=== PATIENT | male | born 1970 | race Caucasian/White ===

== ENCOUNTER 2018-06-21 23:30 | Inpatient (IN) ==
[2018-06-21] MEDS ORDERED: Heparin - SQ 10,000 UNITS/ML Vial ONE (23:44)
[2018-06-21] MEDS ORDERED: Heparin 10,000 UNITS/10 ML Vial (for IV use) IV.PUSH STA (23:45)
[2018-06-21] MEDS ORDERED: Sod Chloride 0.9% Inj 1,000 ML IV.SIG SCH (23:45)
[2018-06-21] MEDS ORDERED: Nitroglycerin Drip Premix 50 MG/250 ML BOTTLE IV.CONT PRN (23:45)
[2018-06-21] MEDS ORDERED: Morphine Inj 4 MG/ML Vial ONE (23:48)
--- NOTE | 2018-06-22 00:05 | ED ---
HPI General Chief Complaint: STEMI Alert Stated Complaint: Chest Pain Time Seen by Provider: 06/21/18 23:45 Source: patient and family (Mother) Mode of arrival: ambulatory Limitations: no limitations History of Present Illness HPI narrative: 47-year-old male came to the emergency room brought by his mother with severe chest pain substernal radiating bilaterally. Patient appeared to be in significant distress and was brought in from triage emergently. As per the mother he started having chest pain 2 hours ago and EMS was called. However patient felt better afterward and refused to come in at that time. His pain restarted 1 hour prior to his arrival this time. It has been continuous since then. Patient says that he has been getting on and off chest pain earlier today that he accounted for gas at that time. Patient was hypertensive with blood pressure of 181/115. He was diaphoretic. He is otherwise a healthy person and not on any medications. He is not a smoker. Mother says that there is family history on her side with heart attack. complaint: Reports chest pain STEMI Alert: Yes Onset (ago): hour(s) Time: 01:00 Duration: constant Onset: during rest Pain location: Reports substernal, left chest and right chest Severity: severe Severity scale (1-10): >10 Quality: Reports heaviness Pain radiation: Reports other Relieving factors: nothing Exacerbating factors: nothing Context: Reports other Associated symptoms: Reports diaphoresis Treatments prior to arrival chest pain: Reports none Related Data Previous Rx's Medication Instructions Recorded aspirin 81 mg PO DAILY #30 tab 06/23/18 atorvastatin 40 mg PO HS #30 tab 06/23/18 metoprolol tartrate 12.5 mg PO BID #60 tab 06/23/18 ticagrelor [Brilinta] 90 mg PO BID #60 tab 06/23/18 Review of Systems ROS: all other systems reviewed are negative Cardiovascular Reports chest pain at rest and Reports diaphoresis PMFSH History History Provided By: Patient and Family Member (Mother) Medical History Medical History Patient denies medical problems (Acute) Surgical History Surgical History No history of previous surgery (Acute) Social History Social History Substance History: No History of Abuse Second Hand Smoke Exposure: No Smoking Status: Never smoker How Often Do You Have a Drink Containing Alcohol: Never Recent Travel in [facility] within the Last 8 Weeks: No Recent Out of Country Travel within the Last 8 Weeks: No Exam Narrative Exam Narrative: GENERAL: Awake, alert, significant distress, anxious SKIN: Pale, diaphoretic HEAD: Atraumatic. Normocephalic. EYES: Pupils equal and round. No scleral icterus. No injection or drainage. ENT: No nasal bleeding or discharge. Mucous membranes pink and moist. NECK: Trachea midline. No JVD. CARDIOVASCULAR: Regular rate and rhythm. No murmur appreciated. RESPIRATORY: No accessory muscle use. Clear to auscultation. Breath sounds equal bilaterally. GASTROINTESTINAL: Abdomen soft, non-tender, nondistended. Hepatic and splenic margins not palpable. MUSCULOSKELETAL: No obvious deformities. No clubbing. No cyanosis. No edema. NEUROLOGICAL: Awake and alert. No obvious cranial nerve deficits. Motor grossly within normal limits. Normal speech. PSYCHIATRIC: Appropriate mood and affect; insight and judgment normal. Course Initial Documented Vital Signs Pulse Rate 66 06/21/18 23:41 Respiratory Rate 18 06/21/18 23:41 Blood Pressure 181/112 H 06/21/18 23:41 Pulse Oximetry 100 06/21/18 23:41 Last Documented Vital Signs Temperature 99 F 06/23/18 09:00 Pulse Rate 70 06/23/18 09:00 Respiratory Rate 18 06/23/18 09:00 Blood Pressure 109/67 06/23/18 09:00 Pulse Oximetry 96 06/23/18 09:00 Critical Care Time Critical Care Time: Yes Total Critical Care Time: 45 Attestation: Aggregate critical care time was 45 minutes. Time to perform other separately billable procedures was not included in the critical care time. My time did not include minutes spent treating any other patients simultaneously or on activities that did not directly contribute to the patient's treatment. The services I provided to this patient were to treat and/or prevent clinically significant deterioration that could result in: STEMI alert I provided critical care services requiring my management, as noted below: Chart data review, documentation time, medication orders and management, vital sign assessments/reviewing monitor data, ordering and reviewing lab tests, ordering and interpreting/reviewing x-rays and diagnostic studies, care of the patient and discussion of the patient with the admitting physicians. Medical Decision Making MDM Narrative Medical decision making narrative: 12:08 AM based on the twelve-lead EKG a STEMI alert was called by me. I discussed the case with Dr. Bearden. Oil Sprayer has been alerted. Awaiting for Dr. Bearden and cath team to arrive. Patient has been given 4 baby aspirins, sublingual nitro, 5000 units of heparin IV, nitroglycerin drip, morphine and Zofran. He told me that his chest pain was slightly better. His perfusion looks slightly better. Patient is still diaphoretic. His mother has been kept updated by me. Patient continues to be hemodynamically stable. Current blood pressure is 138/70. Medical Screen Exam Complete: Yes Emergency Medical Condition: Yes Lab Data Result diagrams: 06/23/18 04:48 06/23/18 04:48 Lab Results 06/21/18 06/21/18 06/21/18 Range/Units 23:50 23:50 23:50 WBC 8.0 (4.0-11.0) th/mm3 RBC 4.38 L (4.50-5.90) mil/mm3 Hgb 14.6 (13.0-17.0) gm/dL POC Hgb (Calc) (13.0-17.0) g/dL Hct 42.6 (39.0-51.0) % POC Hct (39-51.0) % MCV 97.2 (80.0-100.0) fL MCH 33.4 (27.0-34.0) pg MCHC 34.3 (32.0-36.0) % RDW 12.5 (11.6-17.2) % Plt Count 238 (150-450) th/mm3 MPV 9.7 (7.0-11.0) fL Neut % (Auto) 53.6 (16.0-70.0) % Lymph % (Auto) 33.4 (9.0-44.0) % Quay % (Auto) 9.7 H (0.0-8.0) % Eos % (Auto) 2.4 (0.0-4.0) % Baso % (Auto) 0.9 (0.0-2.0) % Neut # (Auto) 4.3 (1.8-7.7) th/mm3 Lymph # (Auto) 2.7 (1.0-4.8) th/mm3 Quay # (Auto) 0.8 (0.0-0.9) th/mm3 Eos # (Auto) 0.2 (0.0-0.4) th/mm3 Baso # (Auto) 0.1 (0.0-0.2) th/mm3 WBC Differential . Differential Comment Auto diff final PT 10.7 (9.8-11.6) sec INR 1.1 Ratio APTT 25.4 (24.3-30.1) sec POC Sodium (137-144) mmol/L Sodium (136-145) meq/L POC Potassium (3.6-5.0) mmol/L Potassium (3.5-5.1) meq/L POC Chloride (102-111) mmol/L Chloride (98-107) meq/L Carbon Dioxide (21.0-32.0) meq/L Anion Gap (5-15) meq/L POC BUN (5-21) mg/dL BUN (7-18) mg/dL Creatinine (0.60-1.30) mg/dL POC Creatinine (0.6-1.3) mg/dL Estimated GFR (>89) mL/min POC Glucose (68-110) mg/dL Random Glucose (74-106) mg/dL Calcium 8.6 (8.5-10.1) mg/dL Magnesium 2.3 (1.5-2.5) mg/dL Total Creatine Kinase 156 (39-308) U/L CK-MB (CK-2) 2.7 (0.5-3.6) ng/mL CK-MB (CK-2) % (0.0-4.0) % Troponin I Less than 0.02 L (0.02-0.05) ng/mL B-Natriuretic Peptide (0-100) pg/mL Triglycerides (42-150) mg/dL Cholesterol (120-200) mg/dL LDL Cholesterol, Calc (0-99) mg/dL HDL Cholesterol (40.0-60.0) mg/dL Cholesterol/HDL Ratio Ratio 06/21/18 06/21/18 06/23/18 Range/Units 23:50 23:50 04:48 WBC 11.9 H (4.0-11.0) th/mm3 RBC 4.00 L (4.50-5.90) mil/mm3 Hgb 13.5 (13.0-17.0) gm/dL POC Hgb (Calc) 15.0 (13.0-17.0) g/dL Hct 39.6 (39.0-51.0) % POC Hct 44.0 (39-51.0) % MCV 99.0 (80.0-100.0) fL MCH 33.8 (27.0-34.0) pg MCHC 34.2 (32.0-36.0) % RDW 12.6 (11.6-17.2) % Plt Count 202 (150-450) th/mm3 MPV 10.6 (7.0-11.0) fL Neut % (Auto) 81.8 H (16.0-70.0) % Lymph % (Auto) 10.1 (9.0-44.0) % Quay % (Auto) 7.6 (0.0-8.0) % Eos % (Auto) 0.3 (0.0-4.0) % Baso % (Auto) 0.2 (0.0-2.0) % Neut # (Auto) 9.7 H (1.8-7.7) th/mm3 Lymph # (Auto) 1.2 (1.0-4.8) th/mm3 Quay # (Auto) 0.9 (0.0-0.9) th/mm3 Eos # (Auto) 0.0 (0.0-0.4) th/mm3 Baso # (Auto) 0.0 (0.0-0.2) th/mm3 WBC Differential . Differential Comment Auto diff final PT (9.8-11.6) sec INR Ratio APTT (24.3-30.1) sec POC Sodium 143 (137-144) mmol/L Sodium (136-145) meq/L POC Potassium 3.3 L (3.6-5.0) mmol/L Potassium (3.5-5.1) meq/L POC Chloride 103 (102-111) mmol/L Chloride (98-107) meq/L Carbon Dioxide (21.0-32.0) meq/L Anion Gap (5-15) meq/L POC BUN 13 (5-21) mg/dL BUN (7-18) mg/dL Creatinine (0.60-1.30) mg/dL POC Creatinine 1.0 (0.6-1.3) mg/dL Estimated GFR (>89) mL/min POC Glucose 103 (68-110) mg/dL Random Glucose (74-106) mg/dL Calcium (8.5-10.1) mg/dL Magnesium (1.5-2.5) mg/dL Total Creatine Kinase (39-308) U/L CK-MB (CK-2) (0.5-3.6) ng/mL CK-MB (CK-2) % (0.0-4.0) % Troponin I (0.02-0.05) ng/mL B-Natriuretic Peptide 15 (0-100) pg/mL Triglycerides (42-150) mg/dL Cholesterol (120-200) mg/dL LDL Cholesterol, Calc (0-99) mg/dL HDL Cholesterol (40.0-60.0) mg/dL Cholesterol/HDL Ratio Ratio 06/23/ Range/Units 04:48 WBC (4.0-11.0) th/mm3 RBC (4.50-5.90) mil/mm3 Hgb (13.0-17.0) gm/dL POC Hgb (Calc) (13.0-17.0) g/dL Hct (39.0-51.0) % POC Hct (39-51.0) % MCV (80.0-100.0) fL MCH (27.0-34.0) pg MCHC (32.0-36.0) % RDW (11.6-17.2) % Plt Count (150-450) th/mm3 MPV (7.0-11.0) fL Neut % (Auto) (16.0-70.0) % Lymph % (Auto) (9.0-44.0) % Quay % (Auto) (0.0-8.0) % Eos % (Auto) (0.0-4.0) % Baso % (Auto) (0.0-2.0) % Neut # (Auto) (1.8-7.7) th/mm3 Lymph # (Auto) (1.0-4.8) th/mm3 Quay # (Auto) (0.0-0.9) th/mm3 Eos # (Auto) (0.0-0.4) th/mm3 Baso # (Auto) (0.0-0.2) th/mm3 WBC Differential Differential Comment PT (9.8-11.6) sec INR Ratio APTT (24.3-30.1) sec POC Sodium (137-144) mmol/L Sodium 139 (136-145) meq/L POC Potassium (3.6-5.0) mmol/L Potassium 3.5 (3.5-5.1) meq/L POC Chloride (102-111) mmol/L Chloride 106 (98-107) meq/L Carbon Dioxide 25.0 (21.0-32.0) meq/L Anion Gap 8 (5-15) meq/L POC BUN (5-21) mg/dL BUN 8 (7-18) mg/dL Creatinine 0.99 (0.60-1.30) mg/dL POC Creatinine (0.6-1.3) mg/dL Estimated GFR 80 L (>89) mL/min POC Glucose (68-110) mg/dL Random Glucose 119 H (74-106) mg/dL Calcium 8.4 L (8.5-10.1) mg/dL Magnesium (1.5-2.5) mg/dL Total Creatine Kinase 1157 H (39-308) U/L CK-MB (CK-2) 101.5 H (0.5-3.6) ng/mL CK-MB (CK-2) % 8.8 H* (0.0-4.0) % Troponin I (0.02-0.05) ng/mL B-Natriuretic Peptide (0-100) pg/mL Triglycerides 143 (42-150) mg/dL Cholesterol 144 (120-200) mg/dL LDL Cholesterol, Calc 78 (0-99) mg/dL HDL Cholesterol 37.3 L (40.0-60.0) mg/dL Cholesterol/HDL Ratio 3.86 Ratio Imaging Data Radiologist's impression: Chest X-Ray 06/21/18 23:45 CONCLUSION: No acute cardiopulmonary process. ECG Data Attestation: I personally reviewed and interpreted this ECG as follows: Interpretation: Normal sinus rhythm, normal axis, anterior lateral ST elevations with inferior reciprocal depression. Heart rate of 65 bpm. Discharge Plan Discharge Disposition Patient Disposition: 30 Still Patient Discharge Condition Condition: Good Discharge Order Discharge Orders: Discharge Order (Routine); Ordered 06/23/18 Ordered By: Nabeel Bearden Cardiology Clear for Discharge (Routine); Ordered 06/23/18 Ordered By: Nabeel Bearden Discharge Details Anticipated Discharge Date: 06/23/18 Physicians Team ED Provider: Cole Jeffers Primary Care Provider: Primary Care Sumaya Young Attending Provider: Nabeel Bearden Status ED Status: Left Department Discharge Information Discharge Date/Time: 06/22/18 00:17
[2018-06-22 00:07] LABS: Baso # (Auto) 0.1 th/mm3 (0.0-0.2); Baso % (Auto) 0.9 % (0.0-2.0); Eos # (Auto) 0.2 th/mm3 (0.0-0.4); Eos % (Auto) 2.4 % (0.0-4.0); Hematocrit 42.6 % (39.0-51.0); Hemoglobin 14.6 gm/dL (13.0-17.0); Lymph # (Auto) 2.7 th/mm3 (1.0-4.8); Lymph % (Auto) 33.4 % (9.0-44.0); Mean Corpuscular HGB Conc 34.3 % (32.0-36.0); Mean Corpuscular Hemoglobin 33.4 pg (27.0-34.0); Mean Corpuscular Volume 97.2 fL (80.0-100.0); Mean Platelet Volume 9.7 fL (7.0-11.0); Mono # (Auto) 0.8 th/mm3 (0.0-0.9); Mono % (Auto) 9.7 % (0.0-8.0); Neut # (Auto) 4.3 th/mm3 (1.8-7.7); Neut % (Auto) 53.6 % (16.0-70.0); Platelet Count 238 th/mm3 (150-450); Red Blood Count 4.38 mil/mm3 (4.50-5.90); Red Cell Distribution Width 12.5 % (11.6-17.2)
[2018-06-22 00:18] LABS: Activated Partial Thrombo Time 25.4 sec (24.3-30.1); INR 1.1 Ratio; Prothrombin Time 10.7 sec (9.8-11.6)
--- NOTE | 2018-06-22 00:21 | XR ---
EXAM DATE: 06/22/2018 11:45 PM EDT AGE/SEX: 47 years / Male INDICATIONS: Stemi alert. Chest pain, shortness of breath. CLINICAL DATA: This is the patient's initial encounter. Patient reports that signs and symptoms have been present for 1 day and indicates a pain score of 10/10. MEDICAL/SURGICAL HISTORY: None. None. COMPARISON: No prior exams available for comparison. FINDINGS: A single AP view of the chest demonstrates the lungs to be symmetrically aerated without evidence of mass, infiltrate or effusion. The cardiomediastinal contours are unremarkable. Osseous structures a re intact. CONCLUSION: No acute cardiopulmonary process. Electronically signed by: Garrett De Leon MD 06/22/2018 12:19 AM EDT
[2018-06-22] MEDS ORDERED: Heparin/NS PF Inj 1,000 ML ONE (00:25)
[2018-06-22] MEDS ORDERED: fentaNYL Citrate Inj 100 MCG/2 ML Ampul ONE (00:25)
[2018-06-22 00:27] LABS: Creatine Kinase 156 U/L (39-308)
[2018-06-22 00:39] LABS: Creatine Kinase MB 2.7 ng/mL (0.5-3.6)
[2018-06-22] MEDS ORDERED: Cangrelor Inj 50,000 MCG Vial ONE (00:41)
[2018-06-22 00:42] LABS: Calcium 8.6 mg/dL (8.5-10.1); Magnesium 2.3 mg/dL (1.5-2.5)
[2018-06-22] MEDS ORDERED: Atropine Inj 1 MG/ML Vial IV.PUSH PRN (00:56)
[2018-06-22] MEDS ORDERED: Sodium Chlor 0.9% Inj 250 ML IV.SIG ONE (00:56)
[2018-06-22] MEDS ORDERED: Acetaminophen 325 MG Tablet PO PRN (00:56)
[2018-06-22] MEDS ORDERED: Temazepam 15 MG Capsule PO PRN (00:56)
[2018-06-22] MEDS ORDERED: Misc Info for Pharmacy OTHER STA (00:56)
[2018-06-22] MEDS ORDERED: Cangrelor Inj 50,000 MCG in Sodium Chlor 0.9% Inj 250 ML IV.SIG ONE (00:59)
--- NOTE | 2018-06-22 01:07 | CATHPROC ---
[employer] HIS Report Study Information Study Number Admission Scheduled Start Study Start [id number] Jun 21 2018 11:30PM 06/22/2018 Jun 22 2018 12:19AM [place] [facility] Cardiac Catheterization Admit Source Facility Department Emergency department [facility] - [facility] Physician and Clinical Staff Initial Nabeel Richter Vacuum Drier Tender Pierre Puri,JOSE DE JESUS Vacuum Drier Tender Suyapa Foley ,RT(R) Other cathlab, cathlab Recorder Familia Aguilar RCIS(BS) Scrub Claudia Tovar,MANAGER OF PROJECT MANAGEMENT TECH2 Procedures Performed Procedure Location (Site) Vessel Name Coronary Angiograms LCA Left Coronary Coronary Angiograms RCA Right Coronary Drug Eluting Inflatio LAD Prox Left Coronary L Heart Cath PTCA LAD Prox Left Coronary Wire insertion Radial (right) Radial Art. Equipment Time Process Safety Engineering Technologist Description Size Mfg Part Number Used/Scraped COPILOT VALVE, BLEEDBACK [id number] 00:29 [employer] Used CONTROL *[id number] TRANSDUCER, TRUWAVE [id number] 00:28 KISER BUCHANAN * Used W/STOCKCOCK *[id number] *[id number] *[id number] *[id number] [id number] *[id number] 00:28 [employer] BLANKET,WARM AIR CCL * Used *[id number] 00:28 [employer] PACK, CCL CUSTOM * Used *[id number] 00:28 [employer] SUPPORT, ARTERIAL ADULT [id number] *[id number] Used [id number] 00:42 [employer] BALLOON, 3.0 X 20MM EUPHORA 20MM Used *[id number] 00:50 [employer] STENT, 3.0 34MM OSMIN 3.0 34MM [id number] Used [id number] 00:29 [employer] [place] 30 YOBANY INDEFLATOR Used *[id number] BAND, RADIAL COMPRESSION TR [id number] 00:54 [employer] [place] 24CM Used SHORT 24 *[id number] SHEATH, FR6 RADIAL PRELUDE 00:28 [employer] [place] FR 6 [id number] Used EASE 11CM [id number] 00:28 [employer] [place] WIRE, EXCHANGE 260CM 3MMJ 260CM Used *[id number] 00:28 [employer] MANIFOLD, 4 PORT * Used *[id number] 00:28 [employer] OMNIPAQUE, 350 MG, 150ML 150ML [id number] Used WIRE, RUNTHROUGH NS FLOPPY [id number] 00:29 [employer] 180CM Used .014 180CM *[id number] Equipment Model, Serial, Lot Number and Expiration Data Description Model Number Serial Number Lot Number Expiration Date STENT, 3.0 34MM OSMIN [id number] 10-13-2019 History: Risk Factors Family History of Hypertension Dyslipidemia Previous PA Previous Heart Failure Premature CAD No No No No No Prior Valve Prior PCI Prior CABG Surgery No No No Cerebrovascular Peripheral Artery Chronic Lung On Dialysis Diabetes Disease Disease Disease No No No No No Labs Hgb (g/dl) Hct (%) WBC (l/cumm) Platelets (thousands) 11.60-17.00 35.00-51.00 4.00-11.00 150.00-450.00 14.6 42.6 8 238 Glucose (mg/dl) BUN (mg/dl) Creatinine (mg/dl) BUN:Creatinine (1:x) 74.00-106.00 7.00-18.00 0.50-1.30 10.00-20.00 103 13 1.0 13 Na (meq/l) K (meq/l) 136.00-145.00 3.50-5.10 143 3.3 INR (PTT:PT) 0.90-1.10 1 CPK-MB (ng/ML) 0.50-3.60 Not Drawn Medication Medication Total Dose (Bolus/Oral) Medication Total Dosage/Unit 1% XYLOCAINE 2 mL ANGIOMAX BOLUS 10.5 mL BRILINTA 180 mg FENTANYL 50 mcg NTG (IC) 400 mcg VERSED 1 mg Medications (Bolus/Oral) Medication Time Given Dosage/Unit Administered By Reason 06/22/2018 12:29:49 VERSED 1 mg Pierre Puri AM 1 mg VERSED given in lab by Pierre Puri RN in Right Antecubital via Peripheral IV. Ordered by Nabeel Rolon. 06/22/2018 12:29:57 FENTANYL 50 mcg Pierre Puri AM 50 mcg FENTANYL given in lab by Pierre Puri, JOSE DE JESUS in Right Antecubital via Peripheral IV. Ordered by Nabeel Bearden. 06/22/2018 12:30:11 1% XYLOCAINE 2 mL Minor, Nabeel AM 2 mL 1% XYLOCAINE given in lab by Nabeel Bearden in Right Radial via Subcutaneous. Ordered by Nabeel Bearden. 06/22/2018 12:31:20 NTG (IC) 200 mcg Nabeel Bearden AM 200 mcg NTG (IC) given in lab by Nabeel Bearden in Right Radial via Intra-arterial. Ordered by Nabeel Bearden. 06/22/2018 12:35:37 ANGIOMAX BOLUS 10.5 mL Pierre Puri AM 10.5 mL ANGIOMAX BOLUS given in lab by Pierre Puri RN in Right Antecubital via Peripheral IV. Ord ered by Nabeel Bearden. 06/22/2018 12:49:50 NTG (IC) 200 mcg Nabeel Bearden AM 200 mcg NTG (IC) given in lab by Nabeel Bearden via Intra-coronary. Ordered by Nabeel Bearden. BRILINTA 06/22/2018 1:00:04 AM 180 mg Pierre Puri 180 mg BRILINTA given in lab by Pierre Puri, JOSE DE JESUS via Oral. Ordered by Nabeel Bearden. Medication (Drip) Medication Time Given Dosage/Unit Concentration/Unit Diluent (ml) Solutio n 06/22/2018 12:37:02 ANGIOMAX DRIP 0.79 mg/kg/hr 250 mg 50 NaCl .9 AM 0.79 mg/kg/hr ANGIOMAX DRIP given in lab by Pierre Puri, JOSE DE JESUS via Peripheral IV. Pump/Drip Flow = 24 .5 ml/hr using NaCl .9 with a concentration of 250 mg in 50 ml. Ordered by Nabeel Bearden. 06/22/2018 12:29:17 IV Solutions 0 mL (IV) 500 NaCl .9 AM Patient arrived on IV Solutions in Right Antecubital via Peripheral IV. Pump/Drip Flow = 20 ml/hr usi ng NaCl .9. 06/22/2018 12:46:31 KENGREAL BOLUS 10.5 mL AM 10.5 mL KENGREAL BOLUS given in lab by Pierre Puri, JOSE DE JESUS in Right Hand via Peripheral IV. Ordered by Nabeel Bearden. 06/22/2018 12:50:02 KENGREAL DRIP 1.806 mcg/kg/min 50 mg 250 NaCl .9 AM 1.806 mcg/kg/min KENGREAL DRIP given in lab by Pierre Puri, JOSE DE JESUS in Right Antecubital via Peripheral IV. Pump/Drip Flow = 84 ml/hr using NaCl .9 with a concentration of 50 mg in 250 ml. Ordered by Nabeel Bearden. Initial Case Assessment Cardiovascular HR Rhythm NIBP Chest Pain 57 stemi 146/100 10 Edema Present Skin color Skin None Normal Warm Circulatory - Right Pulses Dorsalis Pedis Femoral Radial 1 2 2 Scale (0,1,2,3,4,d) Scale (0,1,2,3,4,d) Neurological State Oriented to time-place- Alert Moves all extremities person Respiration - General Respiration Rate SpO2 (%) (B/min) 15 92 Final Case Assessment Cardiovascular HR Rhythm NIBP Chest Pain 76 nsr 135/79 10 Edema Present Skin color Skin None Normal Warm Circulatory - Right Pulses Dorsalis Pedis Femoral Radial 1 2 2 Scale (0,1,2,3,4,d) Scale (0,1,2,3,4,d) Neurological State Oriented to time-place- Alert Moves all extremities person Respiration - General Respiration Rate SpO2 (%) (B/min) 15 98 Chronological Log Time Study Chronological Log 0:16:49 Emergency Room notified that [facility] is ready. 0:17:59 MD arrived. 0:20:04 Patient arrived via Bed. 0:20:04 Patient Name, D.O.B, / Armband Verified By R.N. Vitals capture started with the following parameters, Patient=Adult, Interval=5 min, Initial Pre ogseh=530 mmHg, 0:23:27 Deflation Rate=5 mmHg, Cuff placed on Left Arm 0:24:02 IHKY=061/96 mmhg, VpD8=750.0 %, Pain=10, Ajit=10, Gomez=2 0:29:04 Consent signed by the physician and the patient and verified by the [facility] staff. 0:29:05 Pre-op and post- op instructions given; patient acknowledges understanding of instructions. 0:29:07 Allens test performed on the right radial and ulnar artery. POSITIVE. 0:29:12 Immediate Presedation assesment performed by physician. 0:29:13 Patient has been NPO for More than 6Hrs. 0:29:13 Skin Breakdown- 0:29:14 Patient Warmer Placed on the Table. 0:29:14 Disposable Defibrillator Pads Placed On Patient. 0:29:15 Alena Prominences Protected 0:29:16 A # 20 IV was noted in the Antecubital (left). Grade = 0 0:29:16 A # 20 IV was noted in the Antecubital (right). Grade = 0 0:29:17 Patient arrived on IV Solutions in Right Antecubital via Peripheral IV. Pump/Drip Flow = 20 ml/hr using NaCl .9. 0:29:17 History and physical on the chart or being dictated. Assessment: Initial Case, HR=57 BPM, Rhythm=stemi, NCNS=129/100 mmhg, Chest Pain=10, Edema=None, Color=Normal, Skin = Warm 0:29:19 Right Pulses: Demario Ped=1, Femoral=2, Radial=2 Neurological: State=Alert, Ox3, FAROOQ Respiration: Resp=15 B/min, SpO2=92 % 0:29:20 Right Radial and groin(s) prepped with 2% chlorhexidine, and draped after a 3 min. waiting t erin. 0:29:42 HR=57 bpm, JSGH=421/100 mmhg, WyZ1=809.0 %, Resp=10 B/min, Pain=10, Ajit=10, Gomez=2 0:29:49 1 mg VERSED given in lab by Pierre Puri, JOSE DE JESUS in Right Antecubital via Peripheral IV. Order ed by Nabeel Bearden. 0:29:57 50 mcg FENTANYL given in lab by Pierre Puri, JOSE DE JESUS in Right Antecubital via Peripheral IV. O rdered by Nabeel Bearden. 0:30:04 Pressure channel 1 zeroed. 0:30:06 Reference ECG taken 0:30:10 Case Start 0:30:11 2 mL 1% XYLOCAINE given in lab by Nabeel Bearden in Right Radial via Subcutaneous. Ordered b y Nabeel Bearden. 0:30:51 Access site was Right Radial Artery . A SHEATH, FR6 RADIAL PRELUDE EASE 11CM FR 6 was advanced into the Radial (right) using the Lokesh nelson 0:30:56 technique. 0:31:04 In the Radial (right) the SHEATH, FR6 RADIAL PRELUDE EASE 11CM FR [address] by Nabeel Bearden. 0:31:20 200 mcg NTG (IC) given in lab by Nabeel Bearden in Right Radial via Intra-arterial. Ordered by Nabeel Bearden. A JR 5.0 INFINITI CATHETER FR 5 was advanced over a wire. OMNIPAQUE, 350 MG, 150ML 150ML was use d for 0:32:45 injections. 0:33:47 The RCA was injected and visualized at various angles. OMNIPAQUE, 350 MG, 150ML 150ML used. 0:34:09 HR=69 bpm, IXAA=940/97 mmhg, SpO2=97.0 %, Resp=15 B/min, Pain=10, Ajit=10, Gomez=2 After removing the current catheter a AL 1 GUIDE CATHETER FR 6 was advanced over a WIRE, EXCHANG E 260CM 0:35:28 3MMJ 260CM. 10.5 mL ANGIOMAX BOLUS given in lab by Pierre Puri, RN in Right Antecubital via Peripheral IV . Ordered by Suleiman, 0:35:37 Nabeel. After removing the current catheter a AL 3 GUIDE CATHETER FR 6 was advanced over a WIRE, EXCHANG E 260CM 0:36:58 3MMJ 260CM. 0.79 mg/kg/hr ANGIOMAX DRIP given in lab by Pierre Puri, JOSE DE JESUS via Peripheral IV. Pump/Drip Flow = 24.5 ml/hr using 0:37:02 NaCl .9 with a concentration of 250 mg in 50 ml. Ordered by Nabeel Bearden. 0:38:41 The LCA was injected and visualized at various angles. OMNIPAQUE, 350 MG, 150ML 150ML used. 0:38:45 A WIRE, RUNTHROUGH NS FLOPPY .014 180CM 180CM was inserted via Radial (right). 0:39:08 HR=68 bpm, NWAG=214/106 mmhg, SpO2=99.0 %, Resp=7 B/min, Pain=10, Ajit=10, Gomez=2 0:42:53 Interventional wire has crossed the lesion A BALLOON, 3.0 X 20MM EUPHORA 20MM was inserted over WIRE, RUNTHROUGH NS FLOPPY .014 180CM 180CM via 0:42:56 the Radial (right). A BALLOON, 3.0 X 20MM EUPHORA 20MM over a WIRE, RUNTHROUGH NS FLOPPY .014 180CM 180CM in the LAD 0:43:02 Prox was inflated using a 30 YOBANY INDEFLATOR at 10 yobany for 10 sec. A BALLOON, 3.0 X 20MM EUPHORA 20MM over a WIRE, RUNTHROUGH NS FLOPPY .014 180CM 180CM in the LAD 0:43:33 Prox was inflated using a 30 YOBANY INDEFLATOR at 8 yobany for 20 sec. 0:44:13 HR=54 bpm, WUFR=051/98 mmhg, SpO2=96.0 %, Resp=13 B/min, Pain=10, Ajit=10, Gomez=2 0:44:43 Balloon Removed. Recorded Pressure: Ao, HR=61, Condition=Condition 1 0:46:04 (Aorta) Ao 136/80/104 10.5 mL KENGREAL BOLUS given in lab by Pierre Puri, RN in Right Hand via Peripheral IV. Order ed by Suleiman, 0:46:31 Nabeel. A BALLOON, 3.0 X 20MM EUPHORA 20MM was inserted over WIRE, RUNTHROUGH NS FLOPPY .014 180CM 180CM via 0:46:47 the Radial (right). A BALLOON, 3.0 X 20MM EUPHORA 20MM over a WIRE, RUNTHROUGH NS FLOPPY .014 180CM 180CM in the LAD 0:47:10 Prox was inflated using a 30 YOBANY INDEFLATOR at 12 yobany for 10 sec. A BALLOON, 3.0 X 20MM EUPHORA 20MM over a WIRE, RUNTHROUGH NS FLOPPY .014 180CM 180CM in the LAD 0:47:35 Prox was inflated using a 30 YOBANY INDEFLATOR at 15 yobany for 10 sec. 0:49:14 HR=68 bpm, KVDX=883/79 mmhg, SpO2=97.0 %, Resp=10 B/min, Pain=5, Ajit=10, Gomez=2 0:49:19 Balloon Removed. A STENT, 3.0 34MM OSMIN 3.0 34MM was advanced through a AL 3 GUIDE CATHETER FR 6 over a WIRE, RUN THROUGH 0:49:21 NS FLOPPY .014 180CM 180CM. 0:49:50 200 mcg NTG (IC) given in lab by Nabeel Bearden via Intra-coronary. Ordered by Priya Bearden n. 1.806 mcg/kg/min KENGREAL DRIP given in lab by Pierre Puri, RN in Right Antecubital via Perip heral IV. Pump/Drip 0:50:02 Flow = 84 ml/hr using NaCl .9 with a concentration of 50 mg in 250 ml. Ordered by Nabeel Bearden . A STENT, 3.0 34MM OSMIN 3.0 34MM was deployed using a 30 YOBANY INDEFLATOR at 16 atmospheres for 10 seconds in 0:51:11 the LAD Prox. 0:51:33 Delivery device removed 0:52:32 Wire removed 0:52:34 Catheter was removed 0:53:21 Case End (Physician broke scrub) Assessment: Final Case, HR=76 BPM, Rhythm=nsr, ZLTM=197/79 mmhg, Chest Pain=10, Edema=None, [place] r=Normal, Skin = Warm 0:53:25 Right Pulses: Demario Ped=1, Femoral=2, Radial=2 Neurological: State=Alert, Ox3, FAROOQ Respiration: Resp=15 B/min, SpO2=98 % 0:53:43 Catheter(s) removed without difficulty Radial Compression Device Used. 13 mLs of air placed in BAND, RADIAL COMPRESSION TR SHORT 24 24C M. Affected 0:53:44 hand 96 % O2 saturation. 0:53:57 Sterile dressing applied to site 0:53:57 No case complications noted. 0:53:58 Cine recording checked. 0:53:58 Bedside Report will be given. 0:54:00 Implantable Device card placed in patient's chart. 0:54:02 A Left Heart Cath was performed. 0:54:11 HR=76 bpm, VHEA=226/71 mmhg, SpO2=96.0 %, Resp=17 B/min, Pain=2, Ajit=10, Gomez=2 0:59:08 HR=75 bpm, GVZJ=011/83 mmhg, SpO2=96.0 %, Resp=13 B/min, Pain=2, Ajit=10, Gomez=2 1:00:04 180 mg BRILINTA given in lab by Pierre Puri, RN via Oral. Ordered by Nabeel Bearden. 1:04:11 HR=71 bpm, MENP=128/82 mmhg, SpO2=98.0 %, Resp=11 B/min, Pain=10, Ajit=10, Gomez=2 1:04:17 Vitals capture stopped. 1:04:21 Patient moved to stretcher End Study - Contrast Media Used In Study Contrast Total Opened (mL) Total Used (mL) Total Wasted (mL) Omnipaque 100 100 0 End Study - Maximum Contrast Load Max Contrast Load (mL) 352.3 End Study - Radiation Exposure Fluoro Time (minutes) 7.6 End Study - Patient Disposition Complications Transferred To Interventional Outcome No Telemetry Bed successful
--- NOTE | 2018-06-22 01:25 | MB ---
cc: Nabeel Bearden MD DATE: 06/22/[address] INDICATION: ST elevation AR. HISTORY OF PRESENT ILLNESS: This is a 47-year-old gentleman without significant past medical history, who presented to the emergency department with acute onset of substernal chest pain. The patient denies any prior history of coronary disease. He states his chest pain started earlier this evening. He denies any drug use. Denies any tobacco use. Denies any family history of early coronary disease. Electrocardiogram showed profound ST elevation anteriorly. ST elevation myocardial infarction protocol was initiated. PAST MEDICAL HISTORY: None. SOCIAL HISTORY: Denies any alcohol, tobacco or drug use. FAMILY HISTORY: Denies any family history of early coronary disease or sudden cardiac . REVIEW OF SYSTEMS: A 12-point review of system was performed, negative unless otherwise noted in history of present illness. PHYSICAL EXAMINATION: VITAL SIGNS: Heart rate 68, blood pressure 128/83 mmHg. GENERAL: Alert and oriented x3, in moderate distress. HEENT: Shows pupils reactive to light and accommodation. Extraocular movements intact. NECK: No elevation of jugular venous distention. No thyromegaly. No lymphadenopathy. No carotid bruits. LUNGS: Clear to auscultation bilaterally. CARDIOVASCULAR: Regular rate and rhythm without murmurs, rubs or gallops. ABDOMEN: Nontender, nondistended. Good bowel sounds. No hepatosplenomegaly. EXTREMITIES: Show no clubbing, cyanosis or edema. Good peripheral pulses. NEUROLOGIC: Cranial nerves intact. Motor and sensory are grossly intact. LABORATORY DATA: WBC 8.0, hemoglobin 14.6, platelet count is 238. INR is 1.1. Sodium 143, potassium 3.3, BUN is 13, creatinine is 1.0. Troponin 0.02. Electrocardiogram: Sinus rhythm, ST elevation anteriorly. ASSESSMENT: ST elevation myocardial infarction. PLAN: The patient will be brought emergently to the cardiac catheterization lab. The patient has no significant cardiovascular risk factors. No drug use. No family history of early coronary disease. Risks, benefits and alternatives were discussed with the patient and we will proceed with emergent cardiac catheterization and attempted revascularization. Nabeel Bearden MD FIDENCIO/rw , 01:03 AM , 01:08 AM
--- NOTE | 2018-06-22 01:33 | MA ---
cc: Nabeel Bearden MD DATE: 06/22/[address] INDICATION: ST elevation myocardial infarction. PROCEDURES PERFORMED: 1. Fluoroscopy with interpretation. 2. Coronary angiography. 3. Percutaneous coronary intervention with drug-eluting stent to the proximal extending into the mid left anterior descending coronary artery. METHOD: Risks, benefits, and alternatives were discussed with the patient. The patient understood and consented to the procedure. The patient was brought to catheterization lab and placed on the catheterization table. The right wrist was prepped and draped in sterile fashion. The right wrist was anesthetized with 2% lidocaine. Right radial artery was cannulated and a 6-Welsh 7 cm sheath was placed without difficulty. Angiomax bolus followed by drip was administered. CORONARY ANGIOGRAPHY: 1. Left main coronary artery is angiographically normal. 2. Left anterior descending coronary artery is 100% occluded with heavy thrombotic burden. Proximally, there is no collateralization. LAD distally is not well visualized. 3. Left circumflex gives rise to an obtuse marginal branch and has mild luminal irregularities. Second obtuse marginal branch has minor luminal irregularities. 4. Right coronary artery is a dominant vessel giving rise to posterior descending coronary artery. Right coronary and posterior descending coronary has minor luminal irregularities. PERCUTANEOUS CORONARY INTERVENTION: A 6-Welsh al3 guide catheter was advanced into the left main coronary artery. A 0.014 180 cm [employer] Runthrough wire was navigated down to the distal left anterior descending coronary artery and into a smaller diagonal branch distally. A 3.0 x 20 mm RX Euphora balloon was advanced to the proximal left anterior descending coronary artery and deployed in 2 sequential inflations. Repeat angiography showed yarsanism of ALOK 2 flow, but severe heavy thrombotic burden. Angiomax plus cannula was administered intravenously. Diagonal branch is very small caliber size, has some [id number] disease present. A 3.0 x 34 mm RX Resolute drug-eluting stent was advanced to the proximal left anterior descending coronary artery, which extends into the mid segment and deployed. Repeat angiography showed now yarsanism of ALOK 3 flow, no residual stenosis. CONCLUSIONS: 1. Acute thrombotically occluded proximal left anterior descending coronary artery. 2. Successful percutaneous coronary intervention with drug-eluting stent to the proximal extending into the mid left anterior descending coronary artery. PLAN: The patient will be monitored closely for any post-procedural complication including bleeding and arrhythmia. The patient will be administered aspirin. The patient was given a Brilinta bolus and will be continued on Brilinta at least for 30 days and maybe transition at that point to Plavix. The patient will be initiated on beta romelia, and statin therapy. Depending on blood pressure, we will consider angiotensin-converting enzyme inhibitor. We will follow up with a 2D echocardiogram. Nabeel Bearden MD FIDENCIO/sv , 01:06 AM , 01:14 AM
[2018-06-22] MEDS: Metoprolol Tartrate 25 MG Tablet PO SCH ×2 (09:16→21:18)
[2018-06-22] MEDS ORDERED: Iohexol 350 MG/ML 100 ML Vial (for Cath Lab) IVCONTRAST ONE (10:00)
--- NOTE | 2018-06-22 12:07 | P.PNCA ---
Subjective Interval history: doing well Medications and Allergies Active Medications: Active Medications Acetaminophen (Tylenol) 325 mg PO Q4H PRN PRN Reason: PAIN SCALE 1 TO 2 Aspirin (Aspirin Chew) 81 mg PO DAILY [facility] Last Admin: 06/22/18 09:15 Dose: 81 mg Atorvastatin Calcium (Lipitor) 40 mg PO HS [facility] Atropine Sulfate (Atropine Inj) 0.5 mg IV.PUSH UNSCH PRN PRN Reason: VAGAL REPONSE Nitroglycerin/Dextrose (Nitroglycerin Drip Premix) 50 mg in 250 mls @ 0 mls/hr IV.CONT TITRATE PRN; Protocol PRN Reason: Per Protocol Last Titration: 06/22/18 00:10 Dose: 8 mcg/min, 2.4 mls/hr Sodium Chloride (Ns Inj) 1,000 mls @ 30 mls/hr IV.SIG .Q24H [facility] Stop: 06/22/18 23:44 Last Admin: 06/21/18 23:54 Dose: 30 mls/hr Metoclopramide HCl (Reglan Inj) 10 mg IV.PUSH Q4H PRN; Protocol PRN Reason: NAUSEA Metoprolol Tartrate (Lopressor) 12.5 mg PO BID [facility] Last Admin: 06/22/18 09:16 Dose: 12.5 mg Oxycodone/Acetaminophen (Percocet 5/325 Mg) 1 tab PO Q4H PRN PRN Reason: PAIN SCALE 3 TO 5 Last Admin: 06/22/18 06:48 Dose: 1 tab Sodium Chloride (Ns Flush) 2 ml IV.FLUSH BID [facility] Last Admin: 06/22/18 09:17 Dose: 2 ml Sodium Chloride (Ns Flush) 2 ml IV.FLUSH PRN PRN PRN Reason: FLUSH AFTER USING IV ACCESS Temazepam (Restoril) 15 mg PO HS PRN PRN Reason: SLEEP Ticagrelor (Brilinta) 90 mg PO BID [facility] Last Admin: 06/22/18 09:16 Dose: 90 mg Allergies Allergy/AdvReac Type Severity Reaction Status Date / Time penicillin G Allergy Mild Unverified 04/14/17 13:36 Home Medications Medication Instructions Recorded Confirmed Type No Known Home Medications 06/22/18 06/22/18 History Physical Exam Vital signs: Vital Signs 06/21/18 23:41 06/21/18 23:42 06/21/18 23:46 Temperature Pulse Rate 66 75 Respiratory Rate 18 18 Blood Pressure 181/112 H 181/112 H Pulse Oximetry 100 99 100 06/22/18 00:00 06/22/18 00:04 06/22/18 00:08 Temperature Pulse Rate 61 64 63 Respiratory Rate Blood Pressure 138/88 145/87 H 147/98 H Pulse Oximetry 100 100 98 06/22/18 01:15 06/22/18 01:27 06/22/18 02:00 Temperature 97.6 F Pulse Rate 70 70 56 L Respiratory Rate 16 Blood Pressure 139/86 Pulse Oximetry 99 06/22/18 03:00 06/22/18 04:00 06/22/18 05:00 Temperature 97.6 F Pulse Rate 56 L 56 L 59 L Respiratory Rate 16 16 Blood Pressure 129/79 Pulse Oximetry 97 06/22/18 06:00 06/22/18 07:00 06/22/18 08:00 Temperature 98.2 F Pulse Rate 66 65 66 Respiratory Rate 16 Blood Pressure 133/90 Pulse Oximetry 100 06/22/18 09:00 06/22/18 11:00 Temperature 98.2 F Pulse Rate 64 57 L Respiratory Rate 16 Blood Pressure 134/89 Pulse Oximetry 96 Intake & Output 06/21/18 06/22/18 06/22/18 18:59 06:59 18:59 Intake Total 120 / 120 Output Total 150 / 150 Balance -30 / -30 Weight 76.9 kg Intake: Oral 120 / 120 Output: Urine 150 / 150 Other: Date of Last Bowel Movement 06/21/18 # Bowel Movements 0 - Constitutional no acute distress - Routine Neck Exam Present: JVD - Routine Respiratory Exam Present: CTA bilaterally - Routine Cardiovascular Exam Present: RRR - Routine Neurological Exam Absent: sensory deficit, motor deficit Results 06/21/18 23:50 Cardiac Enzymes 06/21/18 06/21/18 Range/Units 23:50 23:50 CK-MB (CK-2) 2.7 (0.5-3.6) ng/mL Troponin I Less than 0.02 L (0.02-0.05) ng/mL B-Natriuretic Peptide 15 (0-100) pg/mL Coagulation 06/21/18 06/21/18 Range/Units 23:50 23:50 PT 10.7 (9.8-11.6) sec APTT 25.4 (24.3-30.1) sec B-Natriuretic Peptide 15 (0-100) pg/mL CBC 06/21/18 Range/Units 23:50 WBC 8.0 (4.0-11.0) th/mm3 RBC 4.38 L (4.50-5.90) mil/mm3 Hgb 14.6 (13.0-17.0) gm/dL Hct 42.6 (39.0-51.0) % Plt Count 238 (150-450) th/mm3 Neut # (Auto) 4.3 (1.8-7.7) th/mm3 Lymph # (Auto) 2.7 (1.0-4.8) th/mm3 [place] # (Auto) 0.8 (0.0-0.9) th/mm3 Eos # (Auto) 0.2 (0.0-0.4) th/mm3 Baso # (Auto) 0.1 (0.0-0.2) th/mm3 Comprehensive Metabolic Panel 06/21/18 Range/Units 23:50 Calcium 8.6 (8.5-10.1) mg/dL Intake and Output 06/21/18 06/22/18 06/22/18 22:59 06:59 14:59 Intake Total 120 / 120 Output Total 150 / 150 Balance -30 / -30 Intake: Oral 120 / 120 Output: Urine 150 / 150 Other: Date of Last Bowel Movement 06/21/18 # Bowel Movements 0 Weight 76.9 kg - Imaging and Cardiology Imaging: Impressions Chest X-Ray 06/21/18 23:45 CONCLUSION: No acute cardiopulmonary process. Assessment and Plan - Assessment (1) STEMI (ST elevation myocardial infarction) Code(s): I21.3 - ST elevation (STEMI) myocardial infarction of unspecified site Status: Acute Plan: doing well telemetry 5 beats NSVT x 1. reperfusion arrhythmia echo pending asa brillinta statin bb ambulate DC planning for tomorrow
--- NOTE | 2018-06-22 14:05 | ECHRPT ---
Indication: CHEST PAIN CONCLUSIONS Normal left ventricular size. Wall thickness is normal. The left ventricular systolic function is mildly reduced with an estimated ejection fraction in the range of 40- 45%. Distinct regional wall motion abnormality with moderate hypokinesis of the anterior, anterolateral, and anteroseptal segments. Trace mitral valve regurgitation. The estimated pulmonary arterial pressure is 30 mmHg. Structurally normal tricuspid valve. There is trace tricuspid valve regurgitation. BP: / HR: Rhythm: MEASUREMENTS (Male / Female) Normal Values Technical Quality: 2D ECHO LV Diastolic Diameter PLAX 5.2 cm 4.2 - 5.9 / 3.9 - 5.3 cm LV Systolic Diameter PLAX 4.5 cm IVS Diastolic Thickness 0.9 cm 0.6 - 1.0 / 0.6 - 0.9 cm LVPW Diastolic Thickness 0.8 cm 0.6 - 1.0 / 0.6 - 0.9 cm LV Relative Wall Thickness 0.3 RV Internal Dim ED PLAX 2.3 cm LA Systolic Diameter LX 4.0 cm 3.0 - 4.0 / 2.7 - 3.8 cm M-MODE Aortic Root Diameter MM 3.2 cm AV Cusp Separation MM 2.2 cm DOPPLER Mitral E Point Velocity 66.6 cm/s Mitral A Point Velocity 34.6 cm/s Mitral E to A Ratio 1.9 TR Peak Velocity 219.0 cm/s TR Peak Gradient 19.2 mmHg Right Atrial Pressure 10.0 mmHg Pulmonary Artery Systolic Pressu 29.2 mmHg Right Ventricular Systolic Press 29.2 mmHg FINDINGS LEFT VENTRICLE Normal left ventricular size. Wall thickness is normal. The left ventricular systolic function is mildly reduced with an estimated ejection fraction in the range of 40- 45%. Distinct regional wall motion abnormality with moderate hypokinesis of the anterior, anterolateral, and anteroseptal segments. RIGHT VENTRICLE Normal right ventricular size and systolic function. LEFT ATRIUM The left atrial size is normal. RIGHT ATRIUM The right atrial size is normal. ATRIAL SEPTUM Normal atrial septal thickness without atrial level shunting by limited color doppler interrogation. AORTA The aortic root and proximal ascending aorta are normal in size on limited imaging. MITRAL VALVE Trace mitral valve regurgitation. AORTIC VALVE Trileaflet aortic valve. No aortic valve stenosis or regurgitation. TRICUSPID VALVE The estimated pulmonary arterial pressure is 30 mmHg. Structurally normal tricuspid valve. There is trace tricuspid valve regurgitation. PULMONARY VALVE No pulmonary valve regurgitation or stenosis. VESSELS The inferior vena cava is normal in size. PERICARDIUM No pericardial effusion. Nabeel Bearden MD, FACC (Electronically Signed) Final Date:22 June 2018 14:04
[2018-06-23 06:19] LABS: Baso % (Auto) 0.2 % (0.0-2.0); Eos % (Auto) 0.3 % (0.0-4.0); Hematocrit 39.6 % (39.0-51.0); Hemoglobin 13.5 gm/dL (13.0-17.0); Lymph # (Auto) 1.2 th/mm3 (1.0-4.8); Lymph % (Auto) 10.1 % (9.0-44.0); Mean Corpuscular HGB Conc 34.2 % (32.0-36.0); Mean Corpuscular Hemoglobin 33.8 pg (27.0-34.0); Mean Platelet Volume 10.6 fL (7.0-11.0); Mono # (Auto) 0.9 th/mm3 (0.0-0.9); Mono % (Auto) 7.6 % (0.0-8.0); Neut # (Auto) 9.7 th/mm3 (1.8-7.7); Neut % (Auto) 81.8 % (16.0-70.0); Platelet Count 202 th/mm3 (150-450); Red Cell Distribution Width 12.6 % (11.6-17.2); White Blood Count 11.9 th/mm3 (4.0-11.0)
[2018-06-23 06:44] LABS: Calcium 8.4 mg/dL (8.5-10.1); Potassium 3.5 meq/L (3.5-5.1)
[2018-06-23 06:59] LABS: Chol/HDL Ratio 3.86 Ratio; HDL Cholesterol 37.3 mg/dL (40.0-60.0)
[2018-06-23 07:14] LABS: Creatine Kinase MB 101.5 ng/mL (0.5-3.6)
[2018-06-23 07:26] LABS: CKMB Percent 8.8 % (0.0-4.0)
--- NOTE | 2018-06-23 08:11 | P.DS ---
Date of admission: 06/22/18 00:17 Primary care physician: No Primary Care Physician Brief History from admission: Patient did well post percutaneous coronary intervention Patient chest pain resolved Patient had no further nonsustained ventricular tachycardia. It was isolated to only 5 beats shortly after the revascularization which likely represents reperfusion. Echo was performed which showed reduction in ejection fraction between 40 and 45 % and regional wall motion abnormality. DS: Diagnosis - Discharge Diagnosis (1) STEMI (ST elevation myocardial infarction) Status: Acute DS: Medications - Discharge Medications Prescriptions: aspirin 81 mg PO DAILY #30 tab atorvastatin 40 mg PO HS #30 tab metoprolol tartrate 12.5 mg PO BID #60 tab ticagrelor [Brilinta] 90 mg PO BID #60 tab DS: Summary Hospital Course: Patient was initiated on guideline directed medical therapy. Echocardiogram was performed. Patient ejection fraction was moderately reduced. No signs of congestive heart failure. Patient blood pressure would not tolerate initiation of angiotensin- converting enzyme inhibitor or angiotensin receptor romelia. - Time Spent with Patient Total time spent providing and/or coordinating discharge services: Less than 30 minutes - Quality: VTE Deep Vein Thrombosis/Pulmonary Embolism Present on Admission: No Exam Vital signs: Vital Signs 06/22/18 09:00 06/22/18 10:00 06/22/18 11:00 Temperature 98.2 F Pulse Rate 56 L 62 54 L Respiratory Rate 16 Blood Pressure 134/89 Pulse Oximetry 96 06/22/18 12:00 06/22/18 13:00 06/22/18 14:00 Temperature Pulse Rate 62 66 56 L Respiratory Rate Blood Pressure Pulse Oximetry 06/22/18 15:00 06/22/18 16:00 06/22/18 17:00 Temperature 98.4 F Pulse Rate 62 52 L 58 L Respiratory Rate 18 Blood Pressure 135/91 H Pulse Oximetry 98 06/22/18 18:00 06/22/18 19:00 06/22/18 20:00 Temperature 98.4 F Pulse Rate 55 L 66 54 L Respiratory Rate 16 Blood Pressure 123/77 Pulse Oximetry 99 99 06/22/18 21:00 06/22/18 22:00 06/22/18 23:00 Temperature 98.6 F Pulse Rate 64 64 59 L Respiratory Rate 16 Blood Pressure 120/80 Pulse Oximetry 98 06/23/18 00:00 06/23/18 01:00 06/23/18 02:00 Temperature Pulse Rate 54 L 53 L 56 L Respiratory Rate 16 Blood Pressure Pulse Oximetry 06/23/18 03:00 06/23/18 03:30 06/23/18 04:00 Temperature 99.2 F Pulse Rate 59 L 73 58 L Respiratory Rate 16 Blood Pressure 109/64 Pulse Oximetry 98 06/23/18 05:00 06/23/18 06:00 Temperature Pulse Rate 65 61 Respiratory Rate Blood Pressure Pulse Oximetry Intake & Output 06/22/18 06/23/18 06/23/18 18:59 06:59 18:59 Intake Total 1450 / 1450 480 / 480 Output Total 275 / 275 400 / 400 Balance 1175 / 1175 80 / 80 Weight 75.4 kg Intake: IV 250 / 250 Oral 1200 / 1200 480 / 480 Output: Urine 275 / 275 400 / 400 Other: # Voids 3 1 Date of Last Bowel Movement 06/22/18 # Bowel Movements 1 0 - Constitutional no acute distress - Routine Neck Exam Absent: JVD - Routine Respiratory Exam Present: CTA bilaterally - Routine Cardiovascular Exam Present: RRR. Absent: murmur - Routine Abdominal Exam Present: soft, normoactive bowel sounds - Routine Neurological Exam Absent: sensory deficit, motor deficit Results Procedures completed during hospitalization: Cardiac catheterization with percutaneous coronary intervention Labs on day of discharge: Labs from last 24 hours 06/23/18 06/23/18 04:48 04:48 WBC 11.9 H RBC 4.00 L Hgb 13.5 Hct 39.6 MCV 99.0 MCH 33.8 MCHC 34.2 RDW 12.6 Plt Count 202 MPV 10.6 Neut % (Auto) 81.8 H Lymph % (Auto) 10.1 [place] % (Auto) 7.6 Eos % (Auto) 0.3 Baso % (Auto) 0.2 Neut # (Auto) 9.7 H Lymph # (Auto) 1.2 [place] # (Auto) 0.9 Eos # (Auto) 0.0 Baso # (Auto) 0.0 WBC Differential . Differential Comment Auto diff final Sodium 139 Potassium 3.5 Chloride 106 Carbon Dioxide 25.0 Anion Gap 8 BUN 8 Creatinine 0.99 Estimated GFR 80 L Random Glucose 119 H Calcium 8.4 L Total Creatine Kinase 1157 H CK-MB (CK-2) 101.5 H CK-MB (CK-2) % 8.8 H* Triglycerides 143 Cholesterol 144 LDL Cholesterol, Calc 78 HDL Cholesterol 37.3 L Cholesterol/HDL Ratio 3.86 - Impressions ITS Impressions Chest X-Ray 06/21/18 23:45 CONCLUSION: No acute cardiopulmonary process. Discharge Plan - Discharge Disposition Patient Disposition: 01 Discharge Home - Discharge Condition Condition: Good - Discharge Order Discharge Orders: Discharge Order (Routine); Ordered 06/23/18 Ordered By: Nabeel Bearden Cardiology Clear for Discharge (Routine); Ordered 06/23/18 Ordered By: Nabeel Bearden - Discharge Details Anticipated Discharge Date: 06/23/18 - Physicians Team Primary Care Provider: Primary Care [place],No Attending Provider: Nabeel Bearden
[2018-06-23] MEDS: Metoprolol Tartrate 25 MG Tablet PO SCH (08:49)
--- NOTE | 2018-06-24 01:33 | ECG ---
Date Performed: 06/21/2018 Time Performed: 23:42:20 PTAGE: 47 years EKG: Sinus rhythm MODERATE INTRAVENTRICULAR CONDUCTION DELAY MARKED ST ELEVATION, CONSIDER ANTEROSEPTAL INJURY ACUT E DC PREVIOUS TRACING : 03/23/2012 16.20 Compared to previous tracing, ST elevations anterior ly now noted consistent with acute myocardial infarction DOCTOR: Gatito Juarez Interpretating Date/Time 06/24/2018 01:31:43
== END 2018-06-23 09:59 | disposition home or self-care (01) ==
LOC: NEPE 23:30 → NEDA 06-22 00:17 → HCIS 06-22 01:18
PROVIDERS: ADMIT Internal Medicine; ATTEND Internal Medicine